=== PATIENT | female | born 1985 | race Two or more races ===

== ENCOUNTER 2020-04-12 06:08 | Day surgery (SDC) | payer OTHER ==
[2020-04-12] MEDS ORDERED: NEXIUM 24HR20 MG PO (09:00)
[2020-04-12] MEDS ORDERED: CARAFATE1 GM/10 ML PO (09:00)
== END 2020-04-12 10:11 | disposition home or self-care (01) ==
LOC: AMB-ENDOS 06:08
PROVIDERS: ATTEND Surgery
DX: D13.1 Benign neoplasm of stomach (principal); K44.9 Diaphragmatic hernia without obstruction or gangrene

== ENCOUNTER → 2020-11-10 | Emergency (ER) | payer OTHER ==
[~2020-11-10] VITALS: Ht 160 cm; Wt 72.6 kg
[~2020-11-10] MED LIST: CARAFATE1 GM/10 ML PO; NEXIUM 24HR20 MG PO
== END | disposition home or self-care (01) ==
LOC: ER 00:53
DX: K80.00 Calculus of gallbladder with acute cholecystitis without obstruction (principal); N83.291 Other ovarian cyst, right side; R10.31 Right lower quadrant pain; Z11.52 Encounter for screening for COVID-19